=== PATIENT | female | born 1985 | race Caucasian/White ===

== ENCOUNTER 2019-12-16 17:14 | Emergency (ER) | payer BC, SELFPAY ==
[2019-12-16 17:27] VITALS: BP 110/62; PULSE 95; RESP 20; TEMP 37.4; O2SAT 100
--- NOTE | 2019-12-16 18:04 | ED.URI ---
HPI - URI/Sore Throat General Chief Complaint: Upper Respiratory Infection Stated Complaint: cough/sore throat/runny nose/delgadillo Source: patient and RN notes reviewed Mode of arrival: ambulatory Limitations: no limitations History of Present Illness HPI Narrative: The non-smoker/nondrinker patient, a at 19 weeks EDC 08 May by ultrasound, presents with upper respiratory symptoms. Patient states she has a 3-day history of cough, congestion, scratchy throat. No fever, wheeze, earache; no vaginal bleeding, discharge, frequency/urgency/ dysuria. Cold symptoms are mild, worse upon awakening the morning. She is followed by high-risk OB with a prior history of gastric sleeve. Related Data Home Medications Medication Instructions Recorded Confirmed aspirin 81 mg PO DAILY 12/16/19 12/16/19 Allergies Allergy/AdvReac Type Severity Reaction Status Date / Time No Known Allergies Allergy Mild Other Uncoded 12/16/19 17:39 Review of Systems Review of Systems: Narrative: General/Constitutional: No weight loss,fever Eyes: N0: Redness,discharge Ears/Nose/Throat: No: Epistaxis,ear discharge Respiratory: Denies: Hemoptysis Gastrointestinal: No Vomiting, Bleeding-rectal Skin: No Lumps, eruption Neurologic: No Focal Weakness,Sz Hematologic: Denies: Petechiae/Purpura Psychiatric: No: Suicida ideationl All Other Systems: Reviewed and Negative PMFSH Family History Family History (Updated 06/20/19 @ 13:07 by DOCTOR UNKNOWN) Mother Hypertension Family history of chronic obstructive pulmonary disease Father Family history of elevated blood lipids Hypertension Family history of chronic obstructive pulmonary disease Social History Social History Smoking status: Never smoker Alcohol intake: never Comments At time of signature, agree with nursing past medical, surgical, social and family history. There is no relevant family history pertinent to the presenting complaint Exam Narrative: Exam Narrative: General Appearance: Well appearing, Well nourished EYE: PERRLA, Conjunctiva clear Ears: Auditory canal normal, TM normal Nose: Rhinorrhea, Mucousal erythema Mouth/Throat: MM moist, Uvula midline, Pharyngeal erythema Neck: Supple, No adenopathy Respiratory: No respiratory distress, Breath sounds equal, Clear to auscultation Cardiovascular: RRR, No JVD GI:soft , NT Musculoskeletal: Non tender, Normal strength Skin: Warm, Dry Neurological: A&O x3, CN II-XII intact Psychiatric: Normal mood, Normal affect Course Vital Signs Vital signs: Vital Signs Temperature 99.4 F 12/16/19 17:27 Pulse Rate 95 12/16/19 17:27 Respiratory Rate 20 12/16/19 17:27 Blood Pressure 110/62 12/16/19 17:27 Pulse Oximetry 100 12/16/19 17:27 Temperature 99.4 F 12/16/19 17:27 Pulse Rate 95 12/16/19 17:27 Respiratory Rate 20 12/16/19 17:27 Blood Pressure 110/62 12/16/19 17:27 Pulse Oximetry 100 12/16/19 17:27 MDM - URI/Sore Throat Lab Data Labs: Influenza A Screen Negative Reference Range: Negative Influenza B Screen Negative Reference Range: Negative Strep Screen Presumptive Negative *(Reference Range: Negative)* Discharge Plan Discharge Clinical Impression: Antepartum complication of Upper respiratory infection Qualifiers: URI type: unspecified URI Qualified Code(s): J06.9 - Acute upper respiratory infection, unspecified Patient Disposition: Home, Self-Care Condition: Stable Instructions: Antibiotic Form, Acute Bronchitis (ED) Prescriptions: New cefuroxime axetil 500 mg tablet 500 mg PO Q12H Qty: 14 RF: 0 promethazine-codeine 6.25-10 mg/5 mL syrup 5 ml PO Q6H PRN (Reason: cough) Qty: 110 RF: 0 No Action aspirin 81 mg tablet,chewable 81 mg PO DAILY RF: 0 escitalopram oxalate 10 mg tablet 10 mg PO DAILY Qty: 30 RF: 3 valacyclovir 500 mg tablet
== END 2019-12-16 18:11 | disposition home or self-care (01) ==
PROVIDERS: Emergency Provider Emergency Medicine; PCP Family Medicine
DX: O99.512 Diseases of the respiratory system complicating pregnancy, second trimester (principal); Z3A.19 19 weeks gestation of pregnancy; J06.9 Acute upper respiratory infection, unspecified; Z86.711 Personal history of pulmonary embolism; O99.342 Other mental disorders complicating pregnancy, second trimester; O99.612 Diseases of the digestive system complicating pregnancy, second trimester; K21.9 Gastro-esophageal reflux disease without esophagitis; Z98.84 Bariatric surgery status
CPT/HCPCS: 87081; 87804; 87880; 99213; G0463

== ENCOUNTER 2020-04-29 15:54 | Outpatient (CLI) | payer BC, SELFPAY ==
[2020-04-29 17:56] LABS: Basophils Absolute Auto 0.1 K/mm3 (0.0-0.1); Basophils Percent Auto 0.4 % (0.2-1.2); Eosinophils Absolute Auto 0.1 K/mm3 (0-0.3); Eosinophils Percent Auto 0.7 % (0-4.4); Hematocrit 35.6 % (37.0-47.0); Hemoglobin 11.7 g/dL (12.0-15.0); Immature Granulocyte Absolute 0.15 K/mm3 (0.00-0.031); Immature Granulocyte Percent A 1.2 % (0-0.5); Lymphocytes Absolute Auto 1.81 K/mm3 (0.9-3.2); Mean Corpuscular HGB Conc 32.9 g/dl (32-36); Mean Corpuscular Hemoglobin 30.1 pg (26-34); Mean Corpuscular Volume 91.5 fl (80-100); Mean Platelet Volume 10.1 fl (7.4-10.4); Neutrophils Absolute Auto 9.8 K/mm3 (1.3-6.7); Neutrophils Percent Auto 75.7 % (45.5-73.1); Platelet Count Result 236 k/mm3 (150-375); Red Blood Count 3.89 M/mm3 (4.2-5.4); Red Cell Distribution Width 12.7 % (11.5-14.5); White Blood Count 12.9 K/mm3 (4.5-10.0)
[2020-04-30 10:52] LABS: Rapid Plasma Reagin Non-Reactive (NonReactive)
== END 2020-04-29 16:53 | disposition home or self-care (01) ==
LOC: ANHOBOP 15:55 → ANHLDR 15:58
PROVIDERS: PCP Family Medicine; Visit Provider Obstetrics & Gynecology
DX: Z34.93 Encounter for supervision of normal pregnancy, unspecified, third trimester (principal); Z3A.00 Weeks of gestation of pregnancy not specified
CPT/HCPCS: 36415; 85025; 86592; 86850; 86900; 86901; 99199

== ENCOUNTER 2020-04-30 07:05 | Inpatient (IN) | payer BC, SELFPAY ==
[2020-04-30] VITALS (67 sets, daily range): BP systolic 94–118; BP diastolic 45–89; PULSE 57–117; RESP 11–18; TEMP 36.2–36.9; O2SAT 96–100; BMI 34.0; BMI 34.1
--- NOTE | 2020-04-30 07:02 | PM.IMHP ---
H&P: HPI History of Present Illness Chief complaint: labor Narrative: Hawa Brody is a 34 year old female 3 para 2002 presents for repeat delivery. care has been essentially uncomplicated though she is advanced maternal age and has had appropriate counseling and testing. Also on Lovenox for history of pulmonary embolus outside of . Therefore also presents prior to 39 weeks as delivery optimum 38-39 weeks. Also desires permanent sterilization which we will proceed and perform after the delivery. Review of Systems Review of Systems: All systems reviewed & are unremarkable except as noted in HPI and below PMFSH Family History Family History Mother Hypertension Family history of chronic obstructive pulmonary disease Father Family history of elevated blood lipids Hypertension Family history of chronic obstructive pulmonary disease Social History Social History Smoking status: Never smoker Alcohol intake: never Substance use: never Gender identity (if verbalized by the patient): Female Spiritual care concerns: No Meds Home Medications and Allergies Home Medications Medication Instructions Recorded Confirmed Type escitalopram oxalate 10 mg tablet 10 mg PO DAILY #90 tablet 03/17/20 04/29/20 Rx valacyclovir 500 mg tablet 500 mg PO DAILY #30 tablet 04/01/20 04/29/20 Rx heparin, porcine (PF) 10 unit IV Q12H 04/29/20 04/29/20 History Allergies Allergy/AdvReac Type Severity Reaction Status Date / Time No Known Allergies Allergy Mild Other Uncoded 12/16/19 17:39 Exam Const: General: no acute distress Resp: Auscultation: clear to auscultation bilaterally Cardio: Rate: regular rate Rhythm: regular rhythm GI: GI Palp: Yes Soft to palpation Other: Fundal height 40cm heart tones 140 Assessment and Plan Assessment and plan (1) Advanced maternal age (AMA) in : Status: Acute (2) History of pulmonary embolus (PE): Code(s): Z86.711 - Personal history of pulmonary embolism Status: Acute (3) Encounter for female sterilization procedure: Code(s): Z30.2 - Encounter for sterilization Status: Acute Additional Plan proceed with repeat section with bilateral tubal ligation. Also will re-initiate Lovenox therapy morning after surgery.
--- NOTE | 2020-04-30 07:23 | LDADM ---
This patient, Hawa Brody, was admitted to Labor/Delivery/Recovery 119 on 04/30/20 at 07:05. Plans for labor, pain management and were discussed with patient. Patient/family oriented to hospital policies and general routines including ID bracelet, bed and alarms, visiting hours, pain management, procedures, bathroom and other care routines, personal items, smoking policy, room service/diet and guest tray routines, security routines, and visiting hours. Patient/Family are encouraged to report perceived risks to care and to ask questions if they do not understand what they are told or what they should do. See OBIX for further documentation.
[2020-04-30] MEDS: LACTATED RINGERS 1,000 ML 125 ML IV CONT ×2 (07:34→08:41)
--- NOTE | 2020-04-30 08:52 | WPDANESEPPF ---
Anes - Initial Pre Proc Eval Procedure: Operation Date: 04/30/20 09:00 Proposed Procedures p Repeat Section, Bilateral Tubal Ligation With Cautery - Glynn Bui MD Date/Time: 04/30/20 08:52 Surgeon: Glynn Bui MD Pre Op Diagnosis: c/s Patient Data Age: 34 Gender: F Height: 1.65 m Weight: 93 kg Last Vital Signs Temp 36.5 C 04/30/20 07:21 Pulse 75 04/30/20 07:16 BP 103/68 04/30/20 07:16 Allergies Allergy/AdvReac Type Severity Reaction Status Date / Time No Known Allergies Allergy Mild Other Uncoded 12/16/19 17:39 Home Medications Medication Instructions Recorded Confirmed Type escitalopram oxalate 10 mg tablet 10 mg PO DAILY #90 tablet 03/17/20 04/29/20 Rx valacyclovir 500 mg tablet 500 mg PO DAILY #30 tablet 04/01/20 04/29/20 Rx heparin, porcine (PF) 10 unit IV Q12H 04/29/20 04/29/20 History Patient hx anesthesia problems: none Family hx anesthesia problems: none PMFSH Past Medical History Medical History (Updated 04/30/20 @ 08:54 by Mahesh Garcia MD) Anxiety Current mild episode of major depressive disorder without prior episode Depression Gastroesophageal reflux disease History of pulmonary embolus (PE) 2010 Panic attack Family History Family History Mother Hypertension Family history of chronic obstructive pulmonary disease Father Family history of elevated blood lipids Hypertension Family history of chronic obstructive pulmonary disease Social History Social History Smoking status: Never smoker Second hand tobacco smoke exposure: No Alcohol intake: never Substance use: never Gender identity (if verbalized by the patient): Female Spiritual care concerns: No Anes - Eval Final PreProcedure Day of Procedure 04/30/20 08:52 Patient weight: obese Heart: regular rate and rhythm Lungs: clear to auscultation and normal air movement Airway: Mallampati scale class II Neurological: alert and oriented Last oral intake: >/= 8 hours ASA classification: II Emergent: no Anesthetic plan: proceed Anesthesia type and monitoring: regional spinal Informed Consent: The patient's anesthetic plan and its attendant risks and benefits were discussed with the patient/family/POA. Questions were solicited and answers provided to the satisfaction of the patient/family/POA.
--- NOTE | 2020-04-30 09:09 | WPDANESEPPF ---
Anes - Initial Pre Proc Eval Procedure: Operation Date: 04/30/20 09:00 Proposed Procedures p Repeat Section, Bilateral Tubal Ligation With Cautery - Glynn Bui MD Date/Time: 04/30/20 09:09 Surgeon: Glynn Bui MD Pre Op Diagnosis: c/s Patient Data Age: 34 Gender: F Height: 1.65 m Weight: 93 kg Last Vital Signs Temp 36.5 C 04/30/20 07:21 Pulse 75 04/30/20 07:16 BP 103/68 04/30/20 07:16 Allergies Allergy/AdvReac Type Severity Reaction Status Date / Time No Known Allergies Allergy Mild Other Uncoded 12/16/19 17:39 Home Medications Medication Instructions Recorded Confirmed Type escitalopram oxalate 10 mg tablet 10 mg PO DAILY #90 tablet 03/17/20 04/29/20 Rx valacyclovir 500 mg tablet 500 mg PO DAILY #30 tablet 04/01/20 04/29/20 Rx heparin, porcine (PF) 10 unit IV Q12H 04/29/20 04/29/20 History Patient hx anesthesia problems: none Family hx anesthesia problems: none PMFSH Past Medical History Medical History (Updated 04/30/20 @ 08:54 by Mahesh Garcia MD) Anxiety Current mild episode of major depressive disorder without prior episode Depression Gastroesophageal reflux disease History of pulmonary embolus (PE) 2010 Panic attack Family History Family History Mother Hypertension Family history of chronic obstructive pulmonary disease Father Family history of elevated blood lipids Hypertension Family history of chronic obstructive pulmonary disease Social History Social History Smoking status: Never smoker Second hand tobacco smoke exposure: No Alcohol intake: never Substance use: never Gender identity (if verbalized by the patient): Female Spiritual care concerns: No Anes - Eval Final PreProcedure Day of Procedure 04/30/20 09:09 Informed Consent: The patient's anesthetic plan and its attendant risks and benefits were discussed with the patient/family/POA. Questions were solicited and answers provided to the satisfaction of the patient/family/POA.
--- NOTE | 2020-04-30 09:32 | P.PCNOB_ITS ---
OB - Delivery Note Procedure Procedure: Procedures Operation Date: 04/30/20 09:00 <No data on this case meets the specified criteria> Route of delivery: (with bilateral salpingectomy) Estimated blood loss (mL): 300 Anesthesia type: Spinal Disposition: PACU Narrative: Patient prepped and draped in usual manner for this procedure. Pfannenstiel incision was made carried down to the fascia and extended bilaterally the length of the skin incision and then dissected away from the rectus muscles. Peritoneum was readily entered and the bladder flap was developed without difficulty. incision was then made in the uterus and extended bilaterally the lower segment vertex was delivered section naso- oropharynx the rest of baby was delivered cord clamped and cut and the placenta removed manually. Uterus was exteriorized cleared of membranes and clots and approximated using 0 Monocryl running interlocking suture with good approximation hemostasis noted. Bilaterally the tubes then grasped Carina clamps and salpingectomies were performed without difficulty. Uterus was turned the abdomen is tubal stumps were noted be hemostatic and all subfascial tissue was noted hemostatic prior to closing the fascial layer using 0 Vicryl from left angle midline right angle midline. Subcutaneous tissue was approximated 0 plain suture and skin was approximated wide jordy. Jones Baby Weeks of gestation at delivery: 38 Infant gender: Female Weight (pounds): 5 Weight (ounces): 15 score one minute: 8 score five minutes: 9
[2020-04-30] MEDS: LORATADINE 10 MG TABLET PO (11:28)
--- NOTE | 2020-04-30 12:41 | OBPPTRN ---
Addendum entered by Shelby Morales RN 04/30/20 12:42: Pt admitted at 1221 Original Note: Patient transferred to post room # 284 via stretcher. Support person present. Oriented to unit, room, information board, rooming in, admission packet and security measures. Patient verbalizes understanding.
[2020-04-30] MEDS: DOCUSATE SODIUM 100 MG CAPSULE PO (14:05)
[2020-04-30] MEDS: IBUPROFEN 600 MG TABLET PO ×2 (14:06→19:26)
[2020-04-30] MEDS: DEXTROSE 5%/0.45% SOD CHL 1,000 ML 125 ML IV CONT (15:01)
[2020-04-30] MEDS: SIMETHICONE 80 MG TAB.CHEW PO (19:26)
[2020-04-30] MEDS: MULTIVIT/MIN/PREN/FOL AC/IRON TABLET 1 TAB PO (21:01)
[2020-04-30] MEDS: ESCITALOPRAM OXALATE 10 MG TABLET PO (21:02)
[2020-04-30] MEDS: diphenhydrAMINE HCl INJ 50 MG/ML VIAL 25 MG IV PUSH (21:02)
[2020-04-30] MEDS: PANTOPRAZOLE 40 MG TABLET PO (21:05)
[2020-05-01 00:39] VITALS: BP 97/60; PULSE 65; RESP 16; TEMP 37; O2SAT 97
[2020-05-01] MEDS: SIMETHICONE 80 MG TAB.CHEW PO ×3 (04:36→20:01)
[2020-05-01] MEDS: IBUPROFEN 600 MG TABLET PO ×3 (04:37→20:01)
[2020-05-01 04:51] VITALS: BP 96/58; PULSE 62; RESP 18; TEMP 37; O2SAT 98
[2020-05-01 05:13] LABS: Basophils Absolute Auto 0.1 K/mm3 (0.0-0.1); Basophils Percent Auto 0.4 % (0.2-1.2); Eosinophils Absolute Auto 0.1 K/mm3 (0-0.3); Eosinophils Percent Auto 0.7 % (0-4.4); Hematocrit 33.5 % (37.0-47.0); Hemoglobin 10.8 g/dL (12.0-15.0); Immature Granulocyte Absolute 0.09 K/mm3 (0.00-0.031); Immature Granulocyte Percent A 0.8 % (0-0.5); Lymphocytes Absolute Auto 2.17 K/mm3 (0.9-3.2); Lymphocytes Percent Auto 18.5 % (18.3-44.2); Mean Corpuscular HGB Conc 32.2 g/dl (32-36); Mean Corpuscular Hemoglobin 30.1 pg (26-34); Mean Corpuscular Volume 93.3 fl (80-100); Mean Platelet Volume 9.5 fl (7.4-10.4); Monocytes Percent Auto 8.3 % (2.6-8.5); Neutrophils Absolute Auto 8.4 K/mm3 (1.3-6.7); Neutrophils Percent Auto 71.3 % (45.5-73.1); Platelet Count Result 172 k/mm3 (150-375); Red Blood Count 3.59 M/mm3 (4.2-5.4); Red Cell Distribution Width 12.4 % (11.5-14.5); White Blood Count 11.7 K/mm3 (4.5-10.0)
[2020-05-01 08:45] VITALS: BP 106/57; PULSE 73; RESP 18; TEMP 37.5; O2SAT 97
[2020-05-01] MEDS: DOCUSATE SODIUM 100 MG CAPSULE PO ×2 (09:40→17:17)
[2020-05-01] MEDS: ENOXAPARIN 40 MG/0.4 ML SYRINGE SUB-Q (09:40)
--- NOTE | 2020-05-01 12:36 | PM.OBPNVD ---
OB - PN: Subj Subjective Date/time seen: 05/01/20 12:36 POD#1 Pt reports doing well. Her pain is well controlled with the PO pain meds. She is tolerating regular diet w/o N/V. She has voided spontaneously after the catheter has been removed. She is passings flatus. She is ambulating w/o s/sx of anemia. She has already been given her Lovenox injection. Her vaginal bleeding is light. She is bottle feeding. She would then like to be discharged home tomorrow. No CP, SOB, fever, chills, RUCKER, N/V, abdominal pain, dizziness, palpitations. OB - PN: Obj Data Labs CBC & Chem 7: 05/01/20 04:12 Labs: Laboratory Results - last 24 hr 05/01/20 04:12 WBC 11.7 H RBC 3.59 L Hgb 10.8 L Hct 33.5 L MCV 93.3 MCH 30.1 MCHC 32.2 RDW 12.4 Plt Count 172 MPV 9.5 Immature Gran % (Auto) 0.8 H Neut % (Auto) 71.3 Lymph % (Auto) 18.5 Assumption % (Auto) 8.3 Eos % (Auto) 0.7 Baso % (Auto) 0.4 Lymph # (Auto) 2.17 Assumption # (Auto) 1.0 H Eos # (Auto) 0.1 Baso # (Auto) 0.1 Abs Immat Gran (auto) 0.09 H Absolute Neuts (auto) 8.4 H Absolute Nucleated RBC 0.0 Nucleated RBC % 0.0 OB - PN A/P Assessment and Plan (1) Status post repeat low transverse section: Code(s): Z98.891 - History of uterine scar from previous surgery Status: Acute (2) Encounter for female sterilization procedure: Code(s): Z30.2 - Encounter for sterilization Status: Acute (3) History of pulmonary embolus (PE): Code(s): Z86.711 - Personal history of pulmonary embolism Status: Acute Plan day: 1 Plan: routine care and discharge home (tomorrow morning) Comments: - labs/vitals stable - Continue lovenox; pt has medication at home and self administers; pt aware that she will continue for 6wks PP - Plan to discharge home tomorrow morning - Strict return precautions reviewed for PE concerns/bleeding/HTN/fever, infection/severe pain, N/V - F/u in 7-[address] Bui for staple removal Time Spent With Patient Time: Total time spent is greater than 50% in coordination of care (as documented) at patient's floor/unit and/or counseling patient: Review of Systems Review of Systems: All systems reviewed & are unremarkable except as noted in HPI and below (HPI) Exam Const: General: comfortable, no acute distress, alert and awake Orientation/consciousness: patient oriented x3 Resp: Effort & Inspection: normal respiratory effort Auscultation: clear to auscultation bilaterally Cardio: Rate: regular rate GI: Auscultation: normal bowel sounds Other: non-distended, soft, appropriately tender, pfannensteil incision closed w/ jordy and covered with clean/dry/intact dressing : Other: fundus firm below umbilicus, normal lochia Psych: Appearance: grossly normal Affect: normal affect Attitude: cooperative Judgement: Good judgement present (Psych)
[2020-05-01] MEDS: TETANUS,DIPHTHERIA,AC PERTUSSIS ADULT (0.5 ML) BOOSTRIX IM (13:47)
--- NOTE | 2020-05-01 14:37 | WPDANLDPN2 ---
Anes-Prog Note L&D Date/Time: 05/01/20 14:37 Comfortable throughout: section Neuraxial method: spinal Epidural/Spinal procedure site: clean & non-tender Neuro status: Neuro function grossly intact. Cardiovascular status: normal Respiratory status: normal Airway patency: baseline Mental status: baseline Post-Op hydration status: normal Vital Signs: Last Vital Signs Temp 37.5 C 05/01/20 08:45 Pulse 73 05/01/20 08:45 Resp 18 05/01/20 08:45 BP 106/57 L 05/01/20 08:45 Pulse Ox 97 05/01/20 08:45 Pain score (VAS): 0/10. Patient resting in bed at time of assessment, appears comfortable. I/O: Intake & Output 04/30/20 05/01/20 05/01/20 23:59 07:59 15:59 Intake Total 1500 700 200 Output Total 1225 1550 Balance 275 -850 200 Post-procedural complaints: none Patient feedback: Patient satisfied with anesthetic care.
--- NOTE | 2020-05-01 14:38 | WPDANLDNPN2 ---
Anes-Prog Note L&D-Neuraxial Date/Time: 05/01/20 14:38 Neuraxial medications: intrathecal PF morphine Opiod-related complaints: none Patient feedback: Patient satisfied with post-operative pain management.
[2020-05-01 19:35] VITALS: BP 110/70; PULSE 73; RESP 16; TEMP 36.7; O2SAT 100
--- NOTE | 2020-05-01 19:35 | PC.NURSE ---
Patient was given the opportunity to view the discharge video Mother & Baby Care, The First Two Weeks and to ask questions. Patient declined viewing the video and has been given the mother/baby guide for home reference.
[2020-05-01] MEDS: MULTIVIT/MIN/PREN/FOL AC/IRON TABLET 1 TAB PO (21:35)
[2020-05-01] MEDS: PANTOPRAZOLE 40 MG TABLET PO (21:35)
[2020-05-01] MEDS: ESCITALOPRAM OXALATE 10 MG TABLET PO (21:35)
[2020-05-02] MEDS: SIMETHICONE 80 MG TAB.CHEW PO ×2 (05:17→09:16)
[2020-05-02] MEDS: IBUPROFEN 600 MG TABLET PO (05:18)
[2020-05-02 08:15] VITALS: BP 108/77; PULSE 68; RESP 18; TEMP 36.6
[2020-05-02] MEDS: ENOXAPARIN 40 MG/0.4 ML SYRINGE SUB-Q (09:16)
[2020-05-02] MEDS: DOCUSATE SODIUM 100 MG CAPSULE PO (09:16)
--- NOTE | 2020-05-05 08:22 | PM.OBDSVD ---
DS: Admitting Diagnosis Admitting Diagnosis Admitting Diagnosis: Personal history of pulmonary embolism OB - DS: Summary OB Procedures : None OB Procedures Intrapartum: and Tubal ligation OB Procedures: : None Peripartum Data Procedures: Procedures Operation Date: 04/30/20 09:00 Actual Procedures Side Surgeon p Repeat Section, Bilateral Tubal Ligation With Cautery Glynn Bui MD Time Spent with Patient Time attestation: Total time spent providing and/or coordinating discharge services: DS: Data Data Completed and Pending Completed studies during hospitalization: Pending at discharge 04/30/20 09:19 Surgical [PTH] Routine Discharge Plan Discharge Attending physician on discharge: Kimberley George Consulting providers: Mahesh Garcia Discharging Clinician: Kimberley George Anticipated Discharge Date/Time: 05/02/20 12:00 Patient Disposition: Home, Self-Care Activity: no straining, pelvic rest and other - see discharge instructions Diet: as tolerated and regular Wound Care Instructions: incision open to air Discharge Instructions: no heavy lifting >10lbs Education: Mom and Baby Guide Given to: Mother Follow-Up: Call your delivering provider's office for an appointment to be seen in 1 week for staple removal. Mom and baby should come to the [facility] for the follow-up appointment. Appointment Date/Time: May 05, 2020 at 10:00 am What to expect at your follow-up visit: Physical Assessment Call [phone] if you are unable to keep your appointment time. BREAST CARE: 1. Wear a snug supportive bra. 2. For engorgement discomfort: Bottle Feeding: A. May apply ice packs ABDOMINAL INCISION: 1. Allow incision to air dry 2. Do NOT use lotions for powders on your incision 3. When showering, allow soap and water to run over the incision, but do not wash incision PERINEAL CARE: 1. Until bleeding stops, use your joe bottle after urinating 2. Change your pad frequently throughout the day 3. No tub baths until seen by your physician - You may shower ACTIVITY: 1. Rest as much as possible. 2. Do not exercise or lift anything heavier than your baby (such as laundry or other children.) 3. Avoid stairs or driving as much as possible. 4. Do not put anything into the vagina. No douching, tampons, or sexual activity until seen by physician. NOTIFY PHYSICIAN IF YOU HAVE ANY QUESTIONS OR IF ANY OF THE FOLLOWING SYMPTOMS OCCUR: 1. If your incision becomes red, swollen, or more painful than what you have experienced in the hospital. 2. If your vaginal bleeding becomes foul smelling. 3. If your vaginal bleeding becomes more heavy than a period or if your bleeding changes from pink to bright red. However, you may pass an occasional walnut-sized clot once or twice for the first week . 4. If you experience a sharp, shooting pain in you calves. 5. If you discover a hard, reddened area on your breast or if you experience flu-like symptoms. DIET: 1. Eat regular, well-balanced meals. 2. Drink plenty of fluids daily. Stand Alone Forms: General Discharge Information Follow-up/Referrals: Glynn Bui MD [Physician] - 1 Week Discharge Medications: New acetaminophen [Mapap (acetaminophen)] 325 mg Tablet 650 mg PO Q6H PRN (Reason: Mild Pain (1-3)) 10 Days Qty: 30 RF: 0 docusate sodium 100 mg Capsule 100 mg PO BID 10 Days Qty: 20 RF: 0 enoxaparin [Lovenox] 40 mg/0.4 mL Syringe 40 mg subcut DAILY 42 Days Qty: 16.8 RF: 0 hydrocodone-acetaminophen 5-325 mg Tablet 1 tab PO Q4-6H PRN (Reason: Moderate Pain (4-6)) 3 Days Qty: 15 RF: 0 polysaccharide iron complex 150 mg iron Capsule 150 mg PO DAILY 30 Days Qty: 30 RF: 0 ibuprofen 600 mg Tablet 600 mg PO Q6H PRN (Reason: Cramping) 10 Days Qty: 40 RF: 0 Continued escitalopram oxalate 10 mg tablet 10 mg PO DAILY Qty: 90 RF: 0 D
[2020-05-05 10:03] VITALS: BP 112/81; PULSE 75; RESP 16; TEMP 37.2; O2SAT 99
== END 2020-05-02 10:58 | disposition home or self-care (01) | DRG 785 ==
LOC: ANHOB2 05-02 10:03 → ANHLDR 05-05 07:20 → ANHOB2 05-05 07:20
PROVIDERS: Admitting Provider Obstetrics & Gynecology; PCP Family Medicine; Visit Provider Obstetrics & Gynecology
PROC: 10D00Z1 Extraction of Products of Conception, Low, Open Approach (ICD-10-PCS; CPT 59514; principal; 2020-04-30 09:00)
DX: O34.211 Maternal care for low transverse scar from previous cesarean delivery (principal); Z30.2 Encounter for sterilization; Z3A.39 39 weeks gestation of pregnancy; Z37.0 Single live birth; Z86.711 Personal history of pulmonary embolism; F41.8 Other specified anxiety disorders; O99.344 Other mental disorders complicating childbirth; E66.9 Obesity, unspecified; O99.214 Obesity complicating childbirth
CPT/HCPCS: 36415; 85025; 86592; 86850; 86900; 86901; 88302; 90715; 99199; A9270; J0131; J1200; J1650; J2274; J2370; J2590; J7120

== ENCOUNTER 2021-03-24 15:46 | Emergency (ER) | payer BC, SELFPAY ==
[2021-03-24 16:05] VITALS: BP 132/70; PULSE 91; RESP 17; TEMP 36.9; O2SAT 100
--- NOTE | 2021-03-24 16:33 | ED.GENADULT ---
HPI - General Adult General Chief complaint: Upper Respiratory Infection Stated complaint: upper respiratory infection Source: patient Mode of arrival: ambulatory Limitations: no limitations History of Present Illness HPI narrative: 35 y/o female. PMH includes BISI, Binge eating Dx. Presents to [facility] today with acute complaints of sinus congestion, sore throat, as well as 'hoarse voice' for the past 72 hours. She reports to have an ill child at home, who was also exposed to Streptococcal sore throat in past 1 week at daycare. No fevers, chills. No dysphagia or involuntary drooling. No cough, chest pain, or dyspnea. Patient notes only mild relief with OTC remedies. She is without additional acute complaints of illness upon exam. Related Data Home Medications Medication Instructions Recorded Confirmed aspirin 03/24/21 esomeprazole magnesium 40 mg PO DAILY 03/24/21 03/24/21 lisdexamfetamine [Vyvanse] 30 mg PO DAILY 03/24/21 03/24/21 valacyclovir 500 mg PO DAILY 03/24/21 03/24/21 Allergies Allergy/AdvReac Type Severity Reaction Status Date / Time No Known Allergies Allergy Verified 03/24/21 16:22 Review of Systems Review of Systems: Narrative: CONSTITUTIONAL: Denies fever, chills, sweats. EYES: Denies visual changes, redness, discharge. ENT: Positive rhinorrhea, congestion, sore throat. No otalgia. CARDIOVASCULAR: Denies chest pain, palpitations, edema. RESPIRATORY: Denies dyspnea, wheezing, cough GASTROINTESTINAL: Denies abdominal pain, nausea, vomiting, diarrhea. GENITOURINARY: Denies dysuria, hematuria, abnormal discharge SKIN: Denies rash or itching. MUSCULOSKELETAL: Denies acute back pain, joint pain, or myalgia. NEUROLOGIC: Denies numbness, or focal weakness. PSYCHIATRIC: Denies anxiety or depression. All systems reviewed & are unremarkable except as noted in HPI and below PMFSH Past Medical History Medical History Anxiety BMI 32.0-32.9,adult BMI 33.0-33.9,adult delivery delivered COVID-19 Current mild episode of major depressive disorder without prior episode Depression Gastroesophageal reflux disease History of pulmonary embolus (PE) 2010 Panic attack Family History Family History Mother Hypertension Family history of chronic obstructive pulmonary disease Father Family history of elevated blood lipids Hypertension Family history of chronic obstructive pulmonary disease Sibling No problems noted. 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 HEAD: normocephalic, atraumatic. EYES: Sclera clear/white. EARS: External ears normal, auditory canals clear and without drainage, TMs normal without perforation. Hearing grossly intact. NOSE: Rhinorrhea, purulent congestion. No obstruction. THROAT: Mucous membranes moist. Posterior pharynx is erythematous with minimal exudative changes. NECK: Neck supple, non-tender without lymphadenopathy, masses or thyromegaly. CARDIOVASCULAR: Regular rate and rhythm without murmurs, gallops, or rubs. RESPIRATORY: Upper airway Rhonchi, immediately cleared with cough. No additional adventitious breath sounds. Breath sounds are equal bilaterally. GASTROINTESTINAL: Abdomen soft, non-tender, nondistended. SKIN: warm, intact with no suspicious lesions or rash, good texture and turgor. NEURO: awake, alert, and oriented to person, place and time. There were no obv
== END 2021-03-24 16:52 | disposition home or self-care (01) ==
PROVIDERS: Emergency Provider Nurse Practitioner Adult Health; PCP Family Medicine
DX: J06.9 Acute upper respiratory infection, unspecified (principal); J02.9 Acute pharyngitis, unspecified; Z86.16 Personal history of COVID-19; K21.9 Gastro-esophageal reflux disease without esophagitis; Z86.711 Personal history of pulmonary embolism
CPT/HCPCS: 87081; 87880; 99213; G0463

== ENCOUNTER 2021-03-30 09:59 | Outpatient (CLI) | payer BC, SELFPAY ==
--- NOTE | ~2021-03-30 | XR_ITS ---
EXAMINATION: XR chest 2V 03/30/2021 10:15 INDICATION: Cough and shortness of breath. PROCEDURE: 2 view chest COMPARISON: Comparison to multiple prior studies sequentially, with oldest reviewed study dated 03/2010. FINDINGS: The lungs are clear. The cardiomediastinal silhouette is within normal limits. There are no pleural effusions. There is no pneumothorax suspected. IMPRESSION: 1: NO ACUTE CARDIOPULMONARY DISEASE. Reviewed, dictated and finalized at location B.
== END 2021-03-30 10:00 | disposition home or self-care (01) ==
PROVIDERS: PCP Family Medicine; Visit Provider Nurse Practitioner Family
DX: R05 Cough (principal); R06.02 Shortness of breath; Z86.711 Personal history of pulmonary embolism
CPT/HCPCS: 71046

== ENCOUNTER 2021-05-11 15:28 | Emergency (ER) | payer BC, SELFPAY ==
[2021-05-11 15:39] VITALS: BP 112/56; PULSE 96; RESP 18; TEMP 36.8; O2SAT 100
--- NOTE | 2021-05-11 16:00 | ED.GENADULT ---
HPI - General Adult General Chief complaint: Upper Respiratory Infection Stated complaint: sore throat Time Seen by Provider: 05/11/21 16:00 Source: patient and RN notes reviewed Mode of arrival: ambulatory Limitations: no limitations History of Present Illness HPI narrative: 35-year-old female presents with complaints of sore throat for 1 day. ?Hawa reports increasing sore throat and foreign body sensation and white patches to tonsils throughout the night. ?No treatment. ?No high fevers, drooling, neck or throat swelling. ?Pain is bilateral. ?Hurts to swallow. ?Exacerbation factors consist of eating and drinking. ?Rhinorrhea and nasal congestion. ?No cough or chest congestion. ?No voice change. ?No nausea, vomiting, or abdominal pain. ?Tolerating liquids well. ?Denies chills, dyspnea, difficulty swallowing, jaw pain, dental pain, facial pain, and rash. ?Denies chest pain. ?LMP 05/02/2021. ?Remains active. ?The patient reports she was diagnosed with COVID-26 October 2020. ?The patient reports she received 2 [employer] COVID-19 vaccines. ?The patient reports she is not waiting for the results of a COVID-19 lab test. ?The patient reports she does not have weakness, fatigue, or myalgia. The patient reports she does not have a new or worsening cough. ?The patient reports she does not have any loss of taste or smell and diarrhea. ?Denies recent traveling. ?Denies concerns for COVID-19 or exposures. ?At this time, the patient is not suspected of having COVID-19. Some parts of this dictation were generated by voice recognition software and may contain typographical and/or grammatical inaccuracies. Related Data Home Medications Medication Instructions Recorded Confirmed aspirin 81 mg PO DAILY 03/24/21 05/11/21 esomeprazole magnesium 40 mg PO DAILY 03/24/21 05/11/21 lisdexamfetamine [Vyvanse] 30 mg PO DAILY 03/24/21 05/11/21 Allergies Allergy/AdvReac Type Severity Reaction Status Date / Time No Known Allergies Allergy Verified 05/11/21 15:32 Review of Systems Review of Systems: CONSTITUTIONAL: Denies fever, chills, sweats. EYES: Denies visual changes, redness, discharge. ENT: Denies otalgia. Complains of sore throat, rhinorrhea, congestion. CARDIOVASCULAR: Denies chest pain, palpitations, edema. RESPIRATORY: Denies dyspnea, wheezing, cough. GASTROINTESTINAL: Denies abdominal pain, nausea, vomiting, diarrhea. SKIN: Denies rash or itching. MUSCULOSKELETAL: Denies acute back pain, joint pain, or myalgia. NEUROLOGIC: Denies numbness or focal weakness. PSYCHIATRIC: Denies anxiety or depression. All systems reviewed & are unremarkable except as noted in HPI and below. [facility] Past Medical History Medical History (Updated 05/12/21 @ 00:01 by Reena Michelle) ADHD (attention deficit hyperactivity disorder) Anxiety BMI 32.0-32.9,adult BMI 33.0-33.9,adult delivery delivered COVID-19 Current mild episode of major depressive disorder without prior episode Depression Gastroesophageal reflux disease Hiatal hernia History of cold sores History of pulmonary embolus (PE) 2009 Panic attack Pneumonia Pulmonary embolism Surgical History Surgical History (Updated 05/11/21 @ 16:23 by JEANETTE Cuevas) H/O section X3 History of cholecystectomy History of esophagogastroduodenoscopy (EGD) gastritis History of gastric bypass sleeve Family History Family History Mother Hypertension Family history of chronic obstructive pulmonary disease Father Family history of elevated blood lipids Hypertension Family history of chronic obstructive pulmonary disease Sibling No problems noted. Social History Social History Tobacco type: cigarettes Second hand tobacco smoke exposure: No Alcohol intake: current Substance use: never Substance use type: does not use Additional o
== END 2021-05-11 16:30 | disposition home or self-care (01) ==
PROVIDERS: Emergency Provider Nurse Practitioner Family; PCP Family Medicine
DX: J02.9 Acute pharyngitis, unspecified (principal); F90.9 Attention-deficit hyperactivity disorder, unspecified type; K21.9 Gastro-esophageal reflux disease without esophagitis; Z86.711 Personal history of pulmonary embolism; Z79.82 Long term (current) use of aspirin
CPT/HCPCS: 87081; 87880; 99213; G0463

== ENCOUNTER → 2021-10-17 03:58 | Outpatient (CLI) | payer BC, SELFPAY ==
[2021-10-17 20:23] LABS: SARS-CoV-2 RNA PCR Positive
== END ==
PROVIDERS: PCP Family Medicine; Visit Provider Nurse Practitioner Family
DX: U07.1 COVID-19 (principal); R68.89 Other general symptoms and signs
CPT/HCPCS: C9803; U0003; U0005

== ENCOUNTER 2022-01-10 13:11 | Emergency (ER) | payer BC, SELFPAY ==
[2022-01-10 13:23] VITALS: BP 131/71; PULSE 93; RESP 18; TEMP 36.9; O2SAT 100
--- NOTE | 2022-01-10 13:50 | ED.URI ---
HPI - URI/Sore Throat General Chief Complaint: Upper Respiratory Infection Stated Complaint: Cough,Headache,Lt Ear Irritation Time Seen by Provider: 01/10/22 13:30 Source: patient Mode of arrival: ambulatory Limitations: no limitations History of Present Illness HPI Narrative: Ms. Brody is a fit 36-year-old female patient presenting to the clinic today with complaints of cough, congestion, sinus headache, left ear pain, and sore throat x2 weeks. She reports her kids were sick at the same time she was however they improved and she is still sick. She denies any fever or chills. She denies any known exposure to anyone with Covid or flu. Reports that she is also blowing out green nasal discharge and also coughing up green phlegm MD elicited complaint: sore throat, rhinorrhea, nasal congestion and sinus pain Related Data Home Medications Medication Instructions Recorded Confirmed esomeprazole magnesium 40 mg PO DAILY 01/10/22 01/10/22 Allergies Allergy/AdvReac Type Severity Reaction Status Date / Time No Known Allergies Allergy Verified 01/10/22 13:28 Review of Systems Review of Systems: Pertinent positives per HPI. Patient denies any fever, chills, rash, visual changes, dizziness, cough, shortness of breath, chest pain, palpitations, nausea, vomiting, diarrhea, constipation, abdominal pain, or any urinary issues. [facility] Past Medical History Medical History ADHD (attention deficit hyperactivity disorder) Anxiety BMI 32.0-32.9,adult BMI 33.0-33.9,adult BMI 36.0-36.9,adult delivery delivered COVID-19 Current mild episode of major depressive disorder without prior episode Depression Gastroesophageal reflux disease Hiatal hernia History of cold sores History of pulmonary embolus (PE) 2010 Panic attack Pneumonia Pulmonary embolism Surgical History Surgical History H/O section X3 History of cholecystectomy History of esophagogastroduodenoscopy (EGD) gastritis History of gastric bypass sleeve Family History Family History Mother Hypertension Family history of chronic obstructive pulmonary disease Father Family history of elevated blood lipids Hypertension Family history of chronic obstructive pulmonary disease Sibling No problems noted. 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 There is no relevant family history pertinent to the patient complaint. Exam Narrative: General: Well-developed, obese, in no apparent distress Head: Normocephalic, atraumatic Eyes: Pupils equally round and reactive to light bilaterally, EOM intact, sclera and conjunctive clear, no discharge, lids normal Ears: TMs intact and dull, ear canals clear, no drainage, grossly hearing normal. Nose: Nares patent, green nasal discharge, moderate inflammation-right greater than left, sinus tenderness over the maxillary and frontal sinuses. Mouth: Oral pharynx without lesions or masses, good dentition, MMM. Oropharynx red, postnasal drip Neck: Supple, trachea midline, no enlargement of anterior or posterior cervical nodes, no thyroid masses or goiter palpable. Cardio: Regular rate and rhythm, s1 and s2 normal, no murmur appreciated. Resp: Clear to auscultation bilaterally, no rhonchi, rales, wheezing or rub
== END 2022-01-10 14:00 | disposition home or self-care (01) ==
PROVIDERS: Emergency Provider Nurse Practitioner Family; PCP Family Medicine
DX: J01.90 Acute sinusitis, unspecified (principal); Z87.891 Personal history of nicotine dependence; K21.9 Gastro-esophageal reflux disease without esophagitis; Z86.711 Personal history of pulmonary embolism; Z86.16 Personal history of COVID-19; F41.9 Anxiety disorder, unspecified; F32.A Depression, unspecified
CPT/HCPCS: 99213; G0463

== ENCOUNTER 2023-07-23 08:02 | Outpatient (CLI) | payer BC, SELFPAY ==
--- NOTE | ~2023-07-23 | MM_ITS ---
EXAMINATION: MM screening louie BI w junior HISTORY: Screening TECHNIQUE: Craniocaudal and mediolateral oblique 3-D tomosynthesis images were obtained and synthetic 2-D images were generated. CAD analysis was submitted and interpreted. COMPARISON: No prior mammogram is available for comparison at this institution. BREAST PARENCHYMAL COMPOSITION: There are scattered areas of fibroglandular density. FINDINGS: There is a focal asymmetry medially in the right breast on CC view. There is no mammographic evidence for malignancy in the left breast. Axial IMPRESSION: 1. Focal right breast asymmetry medially. 2. Additional mammographic views and possible breast ultrasound are recommended. BI-RADS Category 0: Incomplete: Needs additional imaging evaluation. Reviewed, dictated and finalized at location A. IMPRESSION: 1. Focal right breast asymmetry medially. 2. Additional mammographic views and possible breast ultrasound are recommended . BI-RADS Category 0: Incomplete: Needs additional imaging evaluation.
== END 2023-07-23 08:03 | disposition home or self-care (01) ==
LOC: ANHIMG 08:04
PROVIDERS: PCP Family Medicine; Visit Provider Physician Assistant Medical
DX: Z12.31 Encounter for screening mammogram for malignant neoplasm of breast (principal); R92.8 Other abnormal and inconclusive findings on diagnostic imaging of breast
CPT/HCPCS: 77063; 77067

== ENCOUNTER 2023-08-07 12:10 | Outpatient (CLI) | payer BC, SELFPAY ==
--- NOTE | ~2023-08-07 | MMUS_ITS ---
EXAMINATION: MM diagnostic louie RT w junior, US breast RT limited HISTORY: Possible right breast mass on screening mammogram TECHNIQUE: Additional 3-D tomosynthesis images of the right breast were performed and synthetic 2-D i mages were generated. CAD analysis was submitted and interpreted. High resolution limited right breas t ultrasound was performed. COMPARISON: 07/23/2023 FINDINGS: MAMMOGRAPHIC FINDINGS: There is a persistent focal asymmetry in the posterior third of the lower inner breast at the 5:00 lo cation. No suspicious architectural distortion or calcification are identified. ULTRASOUND: There is no evidence of focal abnormal solid or cystic mass in the vicinity of the mammographic findi ng in question IMPRESSION: 1. Probably benign focal asymmetry of the right breast. 2. Recommend 6 month follow-up right diagnostic mammogram and possible ultrasound. BI-RADS category 3, probably benign findings. Reviewed, dictated and finalized at location A. IMPRESSION: 1. Probably benign focal asymmetry of the right breast. 2. Recommend 6 month follow-up right diagnostic mammogram and possible ultrasou nd. BI-RADS category 3, probably benign findings.
== END 2023-08-07 12:11 | disposition home or self-care (01) ==
LOC: ANHIMG 12:11
PROVIDERS: PCP Family Medicine; Visit Provider Physician Assistant Medical
DX: R92.8 Other abnormal and inconclusive findings on diagnostic imaging of breast (principal)
CPT/HCPCS: 76642; 77061; 77065; G0279

== ENCOUNTER 2024-03-27 19:02 | Emergency (ER) | payer BC, SELFPAY ==
[2024-03-27 19:18] VITALS: BP 123/63; PULSE 82; RESP 15; TEMP 36.8; O2SAT 100
--- NOTE | 2024-03-27 20:04 | PC.NURSE ---
Pt ambulatory with steady gait to intake desk and verbalized she was not going to wait any longer. Pt ambulatory with steady gait to exit. no distress noted.
== END 2024-03-27 20:41 | disposition left against medical advice (07) ==
PROVIDERS: PCP Family Medicine
DX: H57.10 Ocular pain, unspecified eye (principal)
CPT/HCPCS: 99199